=== PATIENT | female | born 1995 | race African-American/Black ===

== ENCOUNTER 2019-04-10 13:26 | Emergency (ER) | payer MEDICAID ==
[~2019-04-10] VITALS: Ht 157.5 cm; Wt 98.6 kg
[2019-04-10 13:43] VITALS: Ht 157.5 cm; Wt 98.6 kg
[2019-04-10] MEDS ORDERED: PRENAVITE1 TAB PO (13:45)
[2019-04-10 14:14] LABS: APPEARANCE CLEAR (CLEAR); BILIRUBIN NEGATIVE (NEGATIVE); COLOR YELLOW (YELLOW); GLUCOSE NEGATIVE (NEGATIVE); KETONE NEGATIVE (NEGATIVE); NITRITE NEGATIVE (NEGATIVE); PROTEIN NEGATIVE (NEGATIVE); UROBILINOGEN NORMAL (NORMAL)
[2019-04-10 14:26] LABS: BACTERIA FEW /hpf (NONE SEEN); EPITHELIAL CELLS 0-5 /hpf (0-5); RED CELLS - URINE 0-5 /hpf (0-5); WHITE CELLS - URINE 0-5 /hpf (0-5)
[2019-04-10] MEDS ORDERED: MACROBID100 MG PO (17:15)
[2019-04-10 17:57] VITALS: BP 124/67
== END 2019-04-10 17:58 | disposition home or self-care (01) ==
LOC: D.ER 13:26
PROVIDERS: Family Medicine
DX: O23.41 Unspecified infection of urinary tract in pregnancy, first trimester (principal); Z3A.09 9 weeks gestation of pregnancy

== ENCOUNTER 2019-10-12 23:38 | Outpatient (CLI) | payer MEDICAID ==
[2019-04-10 13:43] VITALS: BMI 39.8
[~2019-10-12 23:38] MED LIST: MACROBID100 MG PO; PRENAVITE1 TAB PO
[2019-10-13 00:27] LABS: APPEARANCE CLEAR (CLEAR); BILIRUBIN NEGATIVE (NEGATIVE); COLOR YELLOW (YELLOW); GLUCOSE NEGATIVE (NEGATIVE); KETONE MODERATE mg/dL (NEGATIVE); NITRITE NEGATIVE (NEGATIVE); PROTEIN TRACE mg/dL (NEGATIVE); SPECIFIC GRAVITY 1.005 (1.005-1.020); UROBILINOGEN NORMAL (NORMAL)
== END 2019-10-13 02:50 | disposition home or self-care (01) ==
LOC: D.LD 23:38 → D.LDO 23:38 → D.LD 23:40 → D.LDO 10-13 02:50
PROVIDERS: ATTEND Obstetrics & Gynecology
DX: O26.899 Other specified pregnancy related conditions, unspecified trimester (principal); Z3A.00 Weeks of gestation of pregnancy not specified; G43.909 Migraine, unspecified, not intractable, without status migrainosus

== ENCOUNTER 2019-10-20 17:01 | Outpatient (CLI) | payer MEDICAID ==
[2019-04-10 13:43] VITALS: BMI 39.8
[2019-10-20 18:48] LABS: SPECIFIC GRAVITY 1.015 (1.005-1.020)
[2019-10-20 18:49] LABS: BILIRUBIN NEGATIVE (NEGATIVE); GLUCOSE NEGATIVE (NEGATIVE); KETONE NEGATIVE (NEGATIVE); NITRITE NEGATIVE (NEGATIVE); UROBILINOGEN NORMAL (NORMAL)
--- NOTE | 2019-10-20 19:03 | NUR ---
REPORT TO PM SHIFT.
== END 2019-10-21 06:08 | disposition home or self-care (01) ==
LOC: D.LDO 17:01 → D.LD 22:29 → D.LDO 10-21 06:08
PROVIDERS: ATTEND Student in an Organized Health Care Education/Training Program
DX: O26.859 Spotting complicating pregnancy, unspecified trimester (principal)

== ENCOUNTER 2019-10-22 20:58 | Outpatient (CLI) | payer MEDICAID ==
[2019-04-10 13:43] VITALS: BMI 39.8
== END 2019-10-22 22:03 | disposition home or self-care (01) ==
LOC: D.LDO 20:58
PROVIDERS: ATTEND Obstetrics & Gynecology
DX: O26.893 Other specified pregnancy related conditions, third trimester (principal); Z3A.36 36 weeks gestation of pregnancy; R51 Headache

== ENCOUNTER 2019-10-27 16:47 | Outpatient (CLI) | payer MEDICAID ==
[2019-04-10 13:43] VITALS: BMI 39.8
== END 2019-10-27 18:42 | disposition home or self-care (01) ==
LOC: D.LDO 16:47
PROVIDERS: ATTEND Student in an Organized Health Care Education/Training Program
DX: O35.9XX0 Maternal care for (suspected) fetal abnormality and damage, unspecified, not applicable or unspecified (principal)

== ENCOUNTER 2019-11-14 20:29 | Inpatient (IN) | payer MEDICAID ==
[~2019-11-14] VITALS: Ht 157.5 cm; Wt 95.3 kg
[2019-11-14 20:39] VITALS: BP 131/76; Ht 157.5 cm; Wt 95.3 kg
[2019-11-14 21:33] LABS: HEMATOCRIT 31.8 % (36.0-48.0); HEMOGLOBIN 9.9 g/dL (12-16); MCH 23.7 pg (26.0-34.0); MCHC 31.1 g/dL (31.0-37.0); MCV 76.1 fL (80.0-100.0); MEAN PLATELET VOLUME 10.8 fL (7.4-10.4); RBC 4.18 10x6/uL (4.00-5.40); RDW 15.3 % (11.5-14.5); WBC 8.6 10x3/uL (4.8-10.8)
[2019-11-14 21:52] LABS: BILIRUBIN NEGATIVE (NEGATIVE); GLUCOSE NEGATIVE (NEGATIVE); KETONE SMALL mg/dL (NEGATIVE); NITRITE NEGATIVE (NEGATIVE); UROBILINOGEN NORMAL (NORMAL)
[2019-11-16 06:08] LABS: RAPID PLASMA REAGIN Non Reactive (Non Reactive)
[2019-11-16 21:31] VITALS: BP 123/57
--- NOTE | 2019-11-16 21:31 | NUR ---
PATIENT SHIFT ASSESSMENT COMPLETED.
--- NOTE | 2019-11-16 22:00 | NUR ---
PATIENT UP TO BATHROOM, TOWELS PROVIDED FOR SHOWER. PTS MOTHER REMAINS INTHE ROOM FOR ASSISTANCE.
--- NOTE | 2019-11-16 22:25 | NUR ---
PT AMBULATING IN HALLWAY WITH MOTHER. DENIES PAIN OR NEEDS
--- NOTE | 2019-11-16 23:55 | NUR ---
PT VOIDED WITHOUT DIFFICULTY, NO CLOTS NOTED. SMALL RUBRA, PERICARE DONE WITH BETADINE AND WATER AND PAD CHANGED. PT DENIES PAIN OR OTHER NEEDS. PTS MOTHER REMAINS AT BEDSIDE FOR ASSISTANCE. BED LOCKED IN LOW POSITION, SIDE RAILS UPX2, CALL GRANADOS AND TRAY TABLE IN REACH. WILL CONTINUE TO MONITOR.
--- NOTE | 2019-11-17 01:30 | NUR ---
PATIENT SITTING UP IN BED. ICE PROVIDED PER PT REQUEST. PT DENIES PAIN OR OTHER NEEDS AT THIS TIME. WILL CONTINUE TO MONITOR
--- NOTE | 2019-11-17 02:48 | NUR ---
PT SLEEPING WITH EVEN RESPIRATIONS. NO DISTRESS NOTED. AT BEDSIDE IN OPEN CRIB. WILL CONTINUE TO MONITOR
--- NOTE | 2019-11-17 03:31 | NUR ---
PATIENT SITTING UP IN BED CHANGING . STATES PAIN 5 OUT OF 10. PRN MOTRIN 600 MG ADMINISTERED PO. PATIENT DENIES ANY FURTHER NEEDS. BED IN LOWEST POSITION, SISDE RAILS UP X 2, C/LAND WATER WITHIN REACH.
--- NOTE | 2019-11-17 05:00 | NUR ---
PATIENT RESTING QUIETLY WITH EYES OPEN. DENIES NEEDS AT THIS TIME, WILL CONTINUE TO MONITOR
[2019-11-17 05:36] LABS: BASOPHILS 0.1 % (0-2); EOSINOPHILS 0.3 % (0-7); HEMATOCRIT 25.3 % (36.0-48.0); HEMOGLOBIN 7.8 g/dL (12-16); IMMATURE GRANULOCYTES 0.2 % (0-5); LYMPHOCYTES 13.1 % (15-50); MCH 23.4 pg (26.0-34.0); MCHC 30.8 g/dL (31.0-37.0); MEAN PLATELET VOLUME 10.4 fL (7.4-10.4); MONOCYTES 7.1 % (2-11); NEUTROPHILS 79.2 % (40-80); PLATELET COUNT 229 10x3/uL (130-400); RBC 3.33 10x6/uL (4.00-5.40); RDW 15.8 % (11.5-14.5); WBC 14.3 10x3/uL (4.8-10.8)
[2019-11-17 07:22] VITALS: BP 119/58
--- NOTE | 2019-11-17 07:29 | NUR ---
SITTING UP IN BED. ASSESSMENT DONE. AWAKE AND ALERT. VERBAL RESPONSES APPRO TO QUESTIONS. DENIES NEEDS. FUNDUS UU/FIRM. SCANT LOCHIA NOTED ON PAD. PT MOM AT BEDSIDE- INFANT IN ROOM.
--- NOTE | 2019-11-17 14:22 | NUR ---
C/O ABD CRAMPING 3/10 FOLLOWING BREAST FEEDING. MOTRIN GIVEN PER ORDER AND PT REQUEST. BED IN LOW POSITION WITH SRUP X2. CALL LIGHT AND PHONE WITHIN REACH. WILL CONTINUE TO MONITOR.
--- NOTE | 2019-11-17 14:33 | NUR ---
UP TO BATHROOM. PADS AND PANTIES PROVIDED.
[2019-11-17 14:51] VITALS: BP 129/69
--- NOTE | 2019-11-17 14:55 | NUR ---
STATES IS READY TO SHOWER- LINENS CHANGED.
--- NOTE | 2019-11-17 16:54 | NUR ---
SITTING UP IN BED -EATING REG DIET. DENIES NEEDS.
[2019-11-17 19:15] VITALS: BP 116/58
--- NOTE | 2019-11-17 20:39 | NUR ---
CUP OF ICE PROVIDED PER PT REQUEST. NO FURTHER NEEDS IDENTIFIED. WILL CONTINUE TO MONITOR
--- NOTE | 2019-11-17 21:07 | NUR ---
ADMINISTERED MEDICATION PER MD ORDERS, SEE EMAR
--- NOTE | 2019-11-17 23:00 | NUR ---
PT SITTING UP IN BED, IN OPEN CRIB AT BEDSIDE. PT DENIES PAIN OR NEEDS AT THIS TIME. BED REMAINS LOCKED IN LOW POSITION, SIDE RAILS UPX2, CALL GRANADOS AND TRAY TABLE IN REACH. WILL CONTINUE TO MONITOR.
--- NOTE | 2019-11-18 00:38 | NUR ---
PATIENT SITTING UP IN BED, BROUGHT TO NURSERY FOR WEIGHT AT THIS TIME.
--- NOTE | 2019-11-18 00:50 | NUR ---
INFANT RETURNED TO ROOM, ID VERIFIED. NO NEEDS IDENTIFIED.
--- NOTE | 2019-11-18 00:55 | NUR ---
CALLED TO ROOM BY PATIENT, PT BUMPER HER HAND AND CAUSED HER IV TO COME LOOSE. IV D/C'D WITH PRESSURE AND BANDAID APPLIED.
--- NOTE | 2019-11-18 03:36 | NUR ---
ICE WATER PROVIDED PER PT REQUEST. NO FURTHER NEEDS IDENTIFIED. WILL CONTINUE TO MONITOR
[2019-11-18 05:16] LABS: BASOPHILS 0.2 % (0-2); EOSINOPHILS 0.8 % (0-7); HEMATOCRIT 27.8 % (36.0-48.0); HEMOGLOBIN 8.4 g/dL (12-16); IMMATURE GRANULOCYTES 0.3 % (0-5); LYMPHOCYTES 33.3 % (15-50); MCH 23.3 pg (26.0-34.0); MCHC 30.2 g/dL (31.0-37.0); MEAN PLATELET VOLUME 10.4 fL (7.4-10.4); MONOCYTES 5.1 % (2-11); NEUTROPHILS 60.3 % (40-80); PLATELET COUNT 222 10x3/uL (130-400); RBC 3.61 10x6/uL (4.00-5.40); RDW 16.2 % (11.5-14.5)
[2019-11-18 05:18] LABS: WBC 9.6 10x3/uL (4.8-10.8)
--- NOTE | 2019-11-18 06:34 | NUR ---
pain medication administered per pt request. see emar
[2019-11-18 08:20] VITALS: BP 111/55
--- NOTE | 2019-11-18 08:24 | NUR ---
PT ASLEEP WHEN ENTERED ROOM. VS DONE ASSESSMENT DONE. VERBAL RESPONSES APPRO TO QUESTIONS. HUGHES AT WILL. DENIES NEEDS. FUNDUS U1/FIRM. SCANT LOCHIA NOTED ON PAD. NO CLOTS.
--- NOTE | 2019-11-18 09:51 | NUR ---
ENTERED ROOM- ASLEEP AT THIS TIME. NOT DISTURBED.
[2019-11-18 12:45] VITALS: BP 144/77
--- NOTE | 2019-11-18 12:51 | NUR ---
THIS RN TO ROOM FOR PT CHECK, MEDS, VITALS. SEE EMAR AND FLOWSHEET FOR DOC. PT DENIES PAIN, REQUESTS TOWELS AND CLOTHS FOR SHOWER. PROVIDED REQUESTED. PT DENIES FURTHER NEEDS. SRUx2, CL IN REACH.
[2019-11-18 14:20] VITALS: BP 123/64
--- NOTE | 2019-11-18 14:20 | NUR ---
RINGS CALL LIGHT- REQUESTING IBUPROFEN. STATES FEELS LIKE HAS A LITTLE CRAMP IN LOWER BACK. RATES PAIN 4 ON SCALE OF 0-10.
--- NOTE | 2019-11-18 16:00 | NUR ---
PT GIVEN DISCHARGE INSTRUCTIONS. PT VERBALIZES UNDERSTANDING OF INSTRUCTIONS AND THAT SHE MUST CALL [facility] THURSDAY MORNING TO MAKE OZZIE FOR 4 WEEKS. PT DENIES QUESTIONS, SIGNS CHART COPY OF INSTRUCTIONS. PT DENIES PAIN OR NEEDS AT THIS TIME, SRUx2, CL IN REACH. MOTHER AT BEDSIDE. WILL CONT TO MONITOR.
== END 2019-11-18 16:30 | disposition home or self-care (01) | DRG 807 ==
LOC: D.LD 20:29
PROVIDERS: ADMIT Student in an Organized Health Care Education/Training Program; ATTEND Student in an Organized Health Care Education/Training Program
PROC: 10E0XZZ Delivery of Products of Conception, External Approach (ICD-10-PCS; principal; 2019-11-16)
PROC: 0HQ9XZZ Repair Perineum Skin, External Approach (ICD-10-PCS; 2019-11-16)
DX: O99.824 Streptococcus B carrier state complicating childbirth (principal); Z37.0 Single live birth; Z3A.40 40 weeks gestation of pregnancy; O69.81X0 Labor and delivery complicated by cord around neck, without compression, not applicable or unspecified; O75.89 Other specified complications of labor and delivery; O70.0 First degree perineal laceration during delivery